=== PATIENT | male | born 1995 | race Asian ===

== ENCOUNTER 2017-01-07 00:54 | Emergency (ER) | payer SELFPAY ==
[~2017-01-07] VITALS: Ht 180.3 cm; Wt 72.7 kg
[2017-01-07 00:57] VITALS: BP 160/96; TEMP 98.6
[2017-01-07] MEDS ORDERED: ATARAX 25MG25 MG/TAB PO (02:29)
[2017-01-07 02:40] VITALS: PULSE 107
== END 2017-01-07 02:40 | disposition home or self-care (01) ==
LOC: COL.ER 00:54
DX: F41.9 Anxiety disorder, unspecified (principal); R00.2 Palpitations; R00.0 Tachycardia, unspecified; F17.210 Nicotine dependence, cigarettes, uncomplicated